=== PATIENT | female | born 1930 | race Asian ===

== ENCOUNTER 2016-12-11 21:30 | Inpatient (IN) | payer OTHER, MEDICAID ==
[~2016-12-11] VITALS: Ht 157.5 cm; Wt 62.2 kg
--- NOTE | 2016-12-11 22:04 | NUR ---
PT CAME TO ED TODAY W/ COMPLAINT OF LEFT SIDED BODY NUMBNESS X 3 DAYS. PT REPORTS LEFT ARM AND LEFT LEG FEEL "HEAVY AND NUMB." PT ABLE TO MOVE ALL 4 EXTREMITIES FREELY AND W/O RESTRICTION AND NOTED TO AMBULATE W/ STEADY GAIT. NO ASYMMETRY OR FACIAL DROOP NOTED. PT A&O X 4, BREATHING EVEN AND UNLABORED, WITH NO VISUAL SIGNS OF ACUTE OR RESP DISTRESS NOTED. MSE COMPLETED BY DR GONSALES. PT GOWNED AND PLACED ON FULL MONITORS.
[2016-12-11 22:24] LABS: BASOPHIL % 0.6 % (0-2); PLATELET COUNT 186 x10^3mcL (130-400); RED CELL DISTRIBUTION WIDTH 14.5 % (11.5-14.5)
[2016-12-11 22:31] LABS: CALCIUM 9.4 mg/dL (8.5-10.1); CARBON DIOXIDE 30.2 mmol/L (21-32); CHLORIDE SERUM 103 mmol/L (98-107); CREATININE SERUM 0.8 mg/dL (0.6-1.0); GLUCOSE SERUM 98 mg/dL (74-106); POTASSIUM SERUM 3.4 mmol/L (3.5-5.1); SODIUM SERUM 140 mmol/L (136-145)
[2016-12-11 22:35] LABS: ALBUMIN 3.9 g/dL (3.4-5.0); ALKALINE PHOSPHATASE 77 U/L (46-116); ALT/SGPT 38 U/L (14-59); AST/SGOT 32 U/L (15-37); BILIRUBIN TOTAL 0.32 mg/dL (0.20-1.00); TOTAL PROTEIN, SERUM 7.7 g/dL (6.4-8.2)
--- NOTE | 2016-12-11 22:42 | NUR ---
PT TAKEN TO CT AT THIS TIME VIA GURNEY IN A STABLE CONDITION AND W/O INCIDENT.
--- NOTE | 2016-12-11 22:48 | NUR ---
PT RETURNED FROM CT AT THIS TIME VIA GURNEY IN A STABLE CONDITION AND W/O INCIDENT.
[2016-12-11 22:50] LABS: CK-MB 3.3 ng/mL (0-3.6)
[2016-12-12] VITALS (7 sets, daily range): BP systolic 92–173; BP diastolic 41–69; Ht 157.5 cm; Wt 62.2 kg
[2016-12-12] MEDS ORDERED: SINGULAIR10 MG PO (00:34)
[2016-12-12] MEDS ORDERED: DIOVAN320 MG PO (00:34)
[2016-12-12] MEDS ORDERED: NOR10 PO (00:34)
[2016-12-12] MEDS ORDERED: PLA75 PO (00:34)
[2016-12-12] MEDS ORDERED: TAMOXIFEN CITRA20 MG PO (00:35)
[2016-12-12] MEDS ORDERED: HYDROCHLOROTH12.5 M2 PO (00:35)
--- NOTE | 2016-12-12 00:59 | NUR ---
REPORT CALLED TO LISA ON [facility] FOR ADMISSION OF THIS PT.
--- NOTE | 2016-12-12 01:59 | NUR ---
RECEIVED PT FROM ED VIA [facility]UST[facility]. ORIENTED PT TO ROOM AND SURROUNDIGNS. IV NOTED TO LAC PATENT AND INTACT .TELE 34 PLACED ON PT READING NSR. INSTRUCTED PT ON THE USE OF CALL LIGHT FOR ASSISTANCE. ENDORSED PT TO PRIMARY NURSE LISA
--- NOTE | 2016-12-12 02:05 | NUR ---
RECIEVED PT FROM NURSE SURU. BREATHING EVEN AND UNLABORED, ON RA. PT DENIES ANY NUMBNESS/TINGLING OR PAIN. IV INFUSING NS TO LEFT FA @ 100 ML/HR, NO REDNESS OR SWELLING. DR. BOURNE AT BEDSIDE, MADE AWARE OF PT POTASSIUM LEVEL. BED IN LOW POSITION, CALL LIGHT IN REACH. INSTRUCTED TO CALL FOR ASSISTANCE.
[2016-12-12 02:35] LABS: MAGNESIUM 1.9 mg/dL (1.8-2.4); PHOSPHOROUS 3.4 mg/dL (2.5-4.9)
[2016-12-12 02:36] LABS: CHOLESTEROL/HDL RATIO 1.6
[2016-12-12 02:44] LABS: FREE T4 1.25 ng/dL (0.76-1.46); FREE THYROXINE INDEX 3.7 ug/dL (1.4-4.5); T4(THYROXINE) 11.5 ug/dL (4.7-13.3)
[2016-12-12 03:14] LABS: T3 TOTAL 1.24 ng/mL
--- NOTE | 2016-12-12 06:33 | NUR ---
RESTING WITH EYES CLOSED. AWAKENS EASILY TO VERBAL STIMULI. BREATHING EVEN AND UNLABORED. NO ACUTE DISTRESS NOTED. NEURO CHECKS WNL. IV PATENT AND INFUSING. BED IN LOW POSITION, CALL LIGHT IN REACH. WILL ENDORSE TO ONCOMING RN.
--- NOTE | 2016-12-12 07:30 | NUR ---
PATIENT IS SITTING UP IN BED, AWAKE ALERT ABLE TO VERBALIZE NEEDS WELL. SPEECH CLEAR, DENIES ANY H/A OR DIZZINESS. NO FACIAL DROOP NOTED. BILAT MEDIA PRODUCER STRONG AND EQUAL. PATIENT AMBULATES WITH SLOW STEADY GAIT TO [facility]. IVF INFUSING WELL TO LEFT A/C. RESP EVEN AND UNLABORED, LUNGS CLEAR ON ROOM AIR. ABD SOFT, BOWEL SOUNDS ACTIVE. LBM THIS AM PER PATIENT. VOIDING WELL. NO EDEMA NOTED TELE 34 NSR. WILL CONTINUE TO [facility].
--- NOTE | 2016-12-12 08:00 | NUR ---
DR SARABIA AND MEDICAL TEAM INTO SEE PATIENT AND DISCUSS PLAN OF CARE.
[2016-12-12 11:21] LABS: PLATELET COUNT 160 x10^3mcL (130-400); RED CELL DISTRIBUTION WIDTH 13.2 % (11.5-14.5)
[2016-12-12 11:25] LABS: microscopic required? NO
[2016-12-12 11:48] LABS: CALCIUM 8.7 mg/dL (8.5-10.1); CARBON DIOXIDE 28.6 mmol/L (21-32); CHLORIDE SERUM 107 mmol/L (98-107); CREATININE SERUM 0.7 mg/dL (0.6-1.0); GLUCOSE SERUM 82 mg/dL (74-106); MAGNESIUM 1.9 mg/dL (1.8-2.4); PHOSPHOROUS 2.8 mg/dL (2.5-4.9); POTASSIUM SERUM 3.6 mmol/L (3.5-5.1); SODIUM SERUM 143 mmol/L (136-145)
[2016-12-12 11:53] LABS: urine erythrocyte NEGATIVE (NEGATIVE)
[2016-12-12 12:40] LABS: BAND NEUTROPHIL 0 % (0-10); BASOPHIL 0 % (0-2); MONOCYTE 14 % (0-7); SEGMENTED NEUTROPHILS 57 % (37-75)
[2016-12-12 12:41] LABS: PLATELET MORPHOLOGY PLATELETS NORMAL; rbc morphology (normal/abnorm) NORMAL (NORMAL)
--- NOTE | 2016-12-12 16:17 | NUR ---
DM EDUCATION GIVEN ORDERED. PATIENT IS SITTING UP IN BED WITH HHN TX IN PROGRESS. DENIES ANY NUMBNESS OR WEAKNESS AT THIS TIME. FAMILY MEMBERS HAVE BEEN INTO VISIT. WILL CONTINUE TO MONITOR.
--- NOTE | 2016-12-12 17:37 | NUR ---
PATIENT REMAINS IN BED, AMBULATES TO THE BATHROOM PRN. DENIES ANY H/A, DIZZINESS, OR NUMBNESS THIS SHIFT. NO ACUTE DISTRESS NOTED. IVF INFUSING WELL. CONDITON APPEARS STABLE.
--- NOTE | 2016-12-12 19:27 | NUR ---
I HAVE REVIEWED THE DATA COLLECTION BY VALERIE (NAME):Alisha DUBON ENTERED ON (DATE/TIME): I CONCUR WITH THE DATA AND ANY EXCEPTIONS OR COMMENTS ARE LISTED BELOW:
--- NOTE | 2016-12-12 19:40 | NUR ---
RECEIVED PT FROM PREVIOUS SHIFT. PT A/OX4. DENIES CHEST PAIN/PRESSURE. DENIES SOB ON RA. IV PATENT AND INFUSING WELL WITH NO S/S OF INFILTRATION. SCDS TO BLE. CALL LIGHT WITHIN REACH, BED IN LOW POSITION. WILL CONTINUE TO MONITOR.
--- NOTE | 2016-12-12 21:20 | NUR ---
INFORMED DR PRASAD OF BP 92/41, MAP 58. NO FURTHER ORDERS AT THIS TIME. WILL CONTINUE TO MONITOR.
--- NOTE | 2016-12-13 00:45 | NUR ---
PT RESTING AT THIS TIME IN NO ACUTE DISTRESS. RR EVEN AND UNLABORED. IV PATENT. BED IN LOW POSITION, WILL CONTINUE TO MONITOR. WILL CONTINUE TO MONITOR.
[2016-12-13 05:35] VITALS: BP 128/50
--- NOTE | 2016-12-13 07:20 | NUR ---
PT SITTING AT BEDSIDE CHAIR. COOPERATIVE OF CARE. ABLE TO LET NEEDS KNOWN. PT ASKS WHEN WILL BE RELEASED. EXPLAINED PROCESS TO PT. PT UNDERSTOOD. IV PATENT TO LAC. PT STEADY WHEN AMBULATING. WILL CONTINUE TO MONITOR.
[2016-12-13] MEDS ORDERED: LIPI20 PO (09:37)
[2016-12-13 10:00] VITALS: BP 147/44
--- NOTE | 2016-12-13 11:39 | NUR ---
PT IN BEDSIDE CHAIR. NO DISTRESS NOTED. AMBULATES INSIDE ROOM. STEADY GAIT NOTED. CALL LIGHT WITHIN REACH.
[2016-12-13 13:07] VITALS: BP 147/44
--- NOTE | 2016-12-13 14:00 | NUR ---
DISCHARGE INSTRUCTIONS GIVEN TO PATIENT. PT VERBALIZED UNDERSTANDING FOR FOLLOW UP APPOINTMENT WITH PCP AND NEW PRESCRIPTION ORDERS. TELE BOX REMOVED, IV DC'D PT TOLERATED WELL. CATHETER INTACT. PT ESCORTED OUT OF UNIT SAFELY. PT AMBULATED.
== END 2016-12-13 14:00 | disposition home or self-care (01) | DRG 64 ==
LOC: ED 21:30 → DU 12-12 00:42
PROVIDERS: Emergency Medicine; ADMIT Family Medicine
DX: I63.9 Cerebral infarction, unspecified (principal); N17.0 Acute kidney failure with tubular necrosis; E87.6 Hypokalemia; J44.9 Chronic obstructive pulmonary disease, unspecified; N63 Unspecified lump in breast; I10 Essential (primary) hypertension; E78.00 Pure hypercholesterolemia, unspecified; M15.9 Polyosteoarthritis, unspecified; Z68.25 Body mass index [BMI] 25.0-25.9, adult; Z86.73 Personal history of transient ischemic attack (TIA), and cerebral infarction without residual deficits
CPT/HCPCS: 82962; 83880; 84439; 94150; J7030; J7620; J7626; Q0092